=== PATIENT | male | born 1995 | race African-American/Black ===

== ENCOUNTER 2022-03-04 11:42 | Emergency (ER) | payer OTHER ==
[~2022-03-04] VITALS: Ht 185.4 cm; Wt 81.6 kg
[2022-03-04] MEDS ORDERED: predniSONE 50 MG TABLET ONE (12:13)
[2022-03-04] MEDS ORDERED: predniSONE 10 MG TABLET ONE (12:14)
[2022-03-04] MEDS ORDERED: predniSONE 10 MG TABLET PO ONE (12:15)
[2022-03-04 12:21] LABS: HEMATOCRIT 48.2 % (36.7-47.1); MEAN CORPUSCULAR HEMOGLOBIN 31.8 uug (23.8-33.4); MEAN CORPUSCULAR VOLUME 91.6 fL (73.0-96.2); PLATELET COUNT (AUTO) 330 K/uL (152-348)
--- NOTE | 2022-03-04 12:27 | NUR ---
PT IS IN ROOM #2A. DR REYES EVALUATED THE PT.
[2022-03-04 13:12] LABS: CARBON DIOXIDE 25 mmol/L (21-32); CHLORIDE 101 mmol/L (98-107); CREATININE 1.2 mg/dL (0.6-1.3); GLUCOSE 147 mg/dL (74-106); POTASSIUM 4.2 mmol/L (3.5-5.1); UREA NITROGEN, BLOOD 14 mg/dL (7-18)
[2022-03-04] MEDS ORDERED: IV NORMAL SALINE 250 ML IV ONE (15:44)
[2022-03-04] MEDS ORDERED: IOHEXOL 350 100 ML INFUS..BTL ONE (15:44)
[2022-03-04] MEDS ORDERED: SWABABLE VALVE TRANSFER SET EA MC ONE (15:44)
--- NOTE | 2022-03-04 17:47 | NUR ---
PT WAS D/C'd TO HOME. D/C INSTRUCTIONS GIVEN TO THE PT BY DR REYES.
[2022-03-04 17:49] VITALS: BP 139/78
== END 2022-03-04 17:50 | disposition home or self-care (01) ==
LOC: ER 11:42
DX: T78.40XA Allergy, unspecified, initial encounter (principal); X58.XXXA Exposure to other specified factors, initial encounter; R60.0 Localized edema; R79.1 Abnormal coagulation profile; R03.0 Elevated blood-pressure reading, without diagnosis of hypertension
CPT/HCPCS: 99285; 71275; 71045; 80048; 85025; 85379; 84484 ×2; 36415; 93005; J7512 ×2; Q9967; A4663